=== PATIENT | male | born 1970 | race Two or more races ===

== ENCOUNTER 2025-06-14 14:22 | Emergency (ER) | payer MEDICAID, SELFPAY ==
[2025-06-14 15:08] VITALS: BP 143/77; PULSE 63; RESP 18; TEMP 36.7; O2SAT 97
--- NOTE | 2025-06-14 15:34 | EKG_ITS ---
[facility] Test Date: 2025-06-14 Pat Name: JANET GRAVESepartment: Room: - Gender: Male Court Operations Clerk: : 1970 Requested By: Abiel Freeman Order Number: [id number] Reading MD: Abiel Freeman Measurements Intervals Sesser Rate: 66 P: 70 VA: 153 QRS: -62 QRSD: 112 T: 65 QT: 401 QTc: 421 Interpretive Statements SINUS RHYTHM INDETERMINATE AXIS INCOMPLETE RIGHT BUNDLE BRANCH BLOCK [90+ ms QRS DURATION, TERMINAL R IN V1/V2, 40+ ms S IN I/aVL/V4/V5/V6] LEFT ANTERIOR FASCICULAR BLOCK [QRS AXIS <= -45, QR IN I, RS IN II] ST ELEVATION CONSISTENT WITH INJURY, PERICARDITIS, OR EARLY REPOLARIZATION [ST ELEVATION W/O NORMALLY INFLECTED T-WAVE] No previous ECG available for comparison /[id number]/[email or web address]/[id number]
--- NOTE | 2025-06-14 15:34 | XR_ITS ---
Examination: Abdomen sonogram, Limited Date and time of exam: June 14, 2025 1558 hours INDICATIONS: Right upper abdominal pain and tenderness beginning 3 days ago Technique: Real-time moore scale transabdominal sonographic images of the upper abdomen obtained. Findings: Normal gallbladder Normal common bile duct 0.3 cm Pancreatic head 2.8 cm Liver 12.7 cm no liver lesions Normal hepatopedal portal venous flow Patent IVC IMPRESSION: Normal study
--- NOTE | 2025-06-14 15:35 | EDNOTE_ITS ---
ED Abdominal Pain RME/HPI General Chief Complaint: Abdominal Pain Stated complaint: Right side abdominal pain, constipation Time seen by provider: 06/14/25 14:38 Arrival date/time: 06/14/25 14:22 RME / HPI RME / HPI narrative: 55-year-old male patient was brought in by family for evaluation regarding right upper quadrant pain. Onset of symptoms for the last 3 days as worsening right upper quadrant pain, radiated to the back, severity moderate. Associated with nausea but denies any vomiting. Denies any fever. Denies any diarrhea but complain of constipation. Denies any other complaints no medications taken prior travel. No abdominal surgery mention. Patient is currently not taking any medication for chronic medical problem. Related Data Previous Rx's ?Medication ?Instructions ?Recorded dicyclomine 20 mg tablet 20 mg PO QID PRN abdominal p ain 06/14/25 #30 tabs pantoprazole 40 mg tablet,delayed 40 mg PO QDAY #20 ta bs 06/14/25 release (Protonix) Allergies Allergy/AdvReac Type Severity Reaction Status Date / Time Penicillins Allergy Verified 06/14/25 14:33 Review of Systems Review of Systems Narrative Review of Systems: Review of system reviewed and within normal limits except mentioned in HPI ED Exam Narrative Physical exam: VITAL SIGNS: Reviewed. GENERAL APPEARANCE: Alert and interactive, follows commands, no acute distress, HEAD AND FACE: Non-traumatic. ENT: PERRL, pink conjunctivitis, eyelid no trauma, Mucous membrane moist. NECK: Supple, nontender, no nuchal rigidity. CHEST: No tenderness, no crepitus, no paradoxical movement, no retractions. LUNGS: Clear, well ventilated, symmetric, no rales, no wheezing, no ronchi, no stridor, good breath sounds bilaterally. HEART: Regular rate, regular rhythm, no murmur, no gallops. ABDOMEN: Soft, positive bowel sounds, nondistended, no guarding, right upper quadrant tenderness, no rebound, no masses, RECTAL: Deferred. GENITAL: Deferred. NEUROLOGICAL: Gross motor function intact sensory function intact, Appropriate for age. MUSCULOSKELETAL: low back nontender, full range of motion. EXTREMITIES: Nontender, full range of motion. SKIN: Color pink, dry, no rash, no lacerations, no abrasions, no contusions. LYMPHATICS: Deferred. Course Quality Measures none Orders Category Date Time Status EKG (ED ONLY) *Do not use* NOW Care 06/14/25 15:34 Completed EKG (ED Only) Stat Exams 06/14/25 15:34 Draft US gall bladder Stat Exams 06/14/25 15:34 Completed CBC Stat Lab 06/14/25 15:46 Completed Comprehensive Metabolic Panel Stat Lab 06/14/25 15:46 Completed Lipase Stat Lab 06/14/25 15:46 Completed Prothrombin Time with INR Stat Lab 06/14/25 15:46 Completed UA, C/S IF [Urinalysis, C/S if Indicated] Stat Lab 06/14/25 18:48 Completed Ketorolac Inj [Toradol Inj] Med 06/14/25 15:34 Discontinued 30 mg IM X1 ONE Ondansetron Odt [Zofran Odt] Med 06/14/25 15:34 Discontinued 4 mg PO X1 ONE Vital Signs Vital signs: Vital Signs Temperature 98.1 F 06/14/25 15:08 Pulse Rate 63 06/14/25 15:08 Respiratory Rate 18 06/14/25 15:08 Blood Pressure 143/77 H 06/14/25 15:08 Pulse Oximetry (%) 97 06/14/25 15:08 Oxygen Delivery Method Room Air 06/14/25 15:08 Abdominal Pain MDM MDM Narrative MDM Narrative:: 55-year-old male patient was brought in by family for evaluation regarding right upper quadrant pain. Onset of symptoms for the last 3 days as worsening right upper quadrant pain, radiated to the back, severity moderate. Associated with nausea but denies any vomiting. Denies any fever. Denies any diarrhea but complain of constipation. Denies any other complaints no medications taken prior travel. No abdominal surgery mention. Patient is currently not taking any medication for chronic medical problem. Patient's workup today came back slight leukocytosis of 13.7. The rest of the labs unremarkable. Ultrasound of gallbladder came back unremarkable. EKG showed normal sinus rhythm, ventricular rate of 66 bpm, no ST segment elevation depression noted. On multiple reevaluation, there is no tenderness to the right lower quadrant even on deep palpation. Appendicitis is less likely at this time. Patient data External records reviewed:: None Clinical information provided by:: none Social determinants that could affect healthcare access:: none Patient has the following chronic illnesses:: None How is presenting disease/condition affected by chronic disease/condition?: no chronic disease Evaluation data The following diagnostics were reviewed and interpreted by me:: lab results, radiology exam(s) and EKG tracing(s) Lab and/or radiology exams considered but not ordered:: None Interpretation Summary: See results [facility] Medications / Prescriptions Medications or Prescriptions considered but not ordered:: None Medication administrations:: Medication Administration History Discontinued Medications Ketorolac Tromethamine (Ketorolac Inj 60 Mg/2 Ml Vial) 30 mg IM X1 ONE Stop: 06/14/25 15:35 Last Admin: 06/14/25 18:37 Dose: 30 mg Documented By: ED Ondansetron HCl (Ondansetron Odt 4 Mg Tabrap) 4 mg PO X1 ONE; Protocol Stop: 06/14/25 15:35 Last Admin: 06/14/25 18:37 Dose: 4 mg Documented By: ED Canelo Gayle Consultations Consultation(s) initiated? (list below): No Diagnosis Differential diagnosis abdominal pain: abdominal pain, constipation and pancreatitis Most likely diagnosis given after review of the tests above:: See results [facility] Admission Indicated Admission indicated?: not indicated Admission Request Was there a request for admission?: No Disposition Plan Disposition Plan: Discharge Discharge Attestation Discharge Attestation: The patient and all family members were given an opportunity to ask questions and understood the discharge instructions. Discharge instructions specifically effects, indications for sooner follow up or return to the emergency department, and the expected course of current diagnosis. Patient condition: Stable Discharge Plan Plan Patient Disposition: HOME (Self Care) Discharge Disposition comment: Stable Prescriptions/Referrals Prescriptions/Med Rec: New pantoprazole [Protonix] 40 mg tablet,delayed release (DR/EC) 40 mg PO QDAY Qty: 20 0RF dicyclomine 20 mg tablet 20 mg PO QID PRN (Reason: abdominal pain) Qty: 30 0RF Referrals: No Primary/Family,Physician [Primary Care Provider] - In 1 week Problem List Clinical Impression: Abdominal pain, Gastritis Patient/Caregiver Discharge Instructions Discharge Activity: activity as tolerated Education Materials: Abdominal Pain, Treating Gastritis Additional Instructions: Thank you for the opportunity for serving you today. You are stable for discharged . You are advised to: Follow-up with your PCP in 1 to 2 days Return to ED for worsening of symptoms, vomiting, fever, pain on the right lower quadrant Increase oral fluids Take medication as prescribed Print Language: Nepalese Stand Alone Forms: Kristal Award Info., Patient Portal Info Letter PA/BALANCE SHEET ANALYST Supervising Physician PA/BALANCE SHEET ANALYST Supervising Physician: Md Reuben
[2025-06-14 16:07] LABS: Basophils # (Auto) 0.0 Thou/mm3 (0.0-0.2); Basophils % (Auto) 0 % (0-2.5); Eosinophils # (Auto) 0.0 Thou/mm3 (0.0-0.5); Eosinophils % (Auto) 0 % (0-10); Hematocrit 42.9 % (41.0-53.0); Hemoglobin 14.9 g/dL (13.5-16.0); Immature Granulocytes Auto 0.04 Thou/mm3 (0.00-0.00); Lymphocytes # (Auto) 1.3 Thou/mm3 (1.0-4.8); Lymphocytes % (Auto) 10 % (10-50); Mean Corpuscular HGB Conc 34.7 g/dl (31.0-37.0); Mean Corpuscular Hemoglobin 30.3 pg (25.0-35.0); Mean Corpuscular Volume 87 fL (80-100); Monocytes # (Auto) 0.5 Thou/mm3 (0.0-0.8); Monocytes % (Auto) 4 % (0-12); Neutrophils # (Auto) 11.9 Thou/mm3 (1.8-7.7); Neutrophils % (Auto) 86 % (37-80); Nucleated Red Blood Cell # 0.00 Thou/mm3 (0.00-0.00); Nucleated Red Blood Cell % 0 /100 WBC (0); Platelet Count 315 Thou/mm3 (140-440); RDW Standard Deviation 42.5 fL (35.1-43.9); Red Blood Count 4.92 Miln/mm3 (4.50-5.90); White Blood Count 13.7 Thou/mm3 (3.8-10.6)
[2025-06-14 16:17] LABS: INR 1.0 (0.9-1.3); Prothrombin Time 10.9 Seconds (9.0-12.2)
[2025-06-14 16:32] LABS: Alanine Aminotransferase 15 U/L (10-49); Albumin, Serum 4.5 gm/dL (3.5-5.0); Albumin/Globulin Ratio 1.7 (1.2-2.2); Alkaline Phosphatase 93 U/L (46-116); Anion Gap 11 (7-16); Aspartate Amino Transferase 30 U/L (0-34); BUN/Creatinine Ratio 11 Ratio (12-20); Bilirubin,Total 0.9 mg/dL (0.3-1.2); Blood Urea Nitrogen 16 mg/dL (9-23); Calcium 9.7 mg/dL (8.3-10.6); Calcium (Corrected) 9.7 mg/dL (8.5-10.1); Carbon Dioxide 26.4 mMol/L (20.0-31.0); Chloride 101 mMol/L (98-107); Creatinine (Component) 1.4 mg/dL (0.6-1.3); Globulin 2.7 gm/dL (2.3-3.5); Glucose 123 mg/dL (74-106); Lipase 26 U/L (12-53); Osmolality,Calculated 277 (275-295); Potassium 4.0 mMol/L (3.4-5.1); Sodium 138 mMol/L (136-145); Total Protein 7.2 gm/dL (5.7-8.2); eGFR 60 See Note
[2025-06-14] MEDS: ONDANSETRON ODT 4 MG TABRAP PO (18:37)
[2025-06-14] MEDS: KETOROLAC INJ 60 MG/2 ML VIAL 30 MG IM (18:37)
[2025-06-14 18:59] LABS: Collection Type, Urine Clean Catch; Squamous Epithelial Cell,Urine 0 /hpf (0-5)
[2025-06-14 19:13] LABS: Bilirubin,Urine Negative (Negative); Blood,Urine 2+ (Negative); Clarity,Urine Clear (Clear/Hazy); Color,Urine Yellow (Lt Yel-Yel); Culture Indicated,Urine Not Indicated; Glucose, Urine Negative (Negative); Ketones,Urine 2+ (Negative); Leukocyte Esterase,Urine Negative (Negative); Nitrite,Urine Negative (Negative); PH,Urine 5.5 (5.0-7.0); Protein,Urine 1+ (Neg - Trace); RBC,Urine 16 /hpf (0-3); Specific Gravity,Urine 1.035 (1.001-1.035); Urobilinogen,Urine Negative mg/dL (0.0-1.0); WBC,Urine 1 /hpf (0-5)
[2025-06-14 20:26] VITALS: BP 111/69; PULSE 74; RESP 16; TEMP 36.8; O2SAT 98
== END 2025-06-14 20:32 | disposition home or self-care (01) ==
PROVIDERS: Nurse Practitioner Family; Emergency Provider Emergency Medicine
DX: K29.70 Gastritis, unspecified, without bleeding (principal); R10.11 Right upper quadrant pain; I45.10 Unspecified right bundle-branch block; I44.4 Left anterior fascicular block
CPT/HCPCS: 36415; 76705; 80053; 81001; 83690; 85025; 85610; 93005; 96372; 99283; J1885; Q0162